=== PATIENT | male | born 1970 | race American Indian/Alaskan Native ===

== ENCOUNTER 2017-10-17 16:09 | Emergency (ER) | payer MEDICAID ==
[2017-10-17 16:56] VITALS: BP 132/78
[2017-10-17 17:34] LABS: ANION GAP 12.3; CHLORIDE,CL 101 mmol/L (101-111); SODIUM,NA 132 mmol/L (135-145)
[2017-10-17] MEDS ORDERED: ClonazePAM 0.5 MG Tab PO ONE (17:43)
--- NOTE | 2017-10-17 18:02 | EDM.PDOC ---
Scribed by Scarlet French 10/17/17 [id number] for Chad Rdogers MD ED HPI GENERAL MEDICAL PROBLEM - General Chief Complaint: General Stated Complaint: [id number] CHEST PAINS SOB LOWER BACK PAIN Time Seen by Provider: 10/17/17 16:47 Source of Information: Reports: Patient, RN, RN Notes Reviewed History Limitations: Reports: No Limitations - History of Present Illness INITIAL COMMENTS - FREE TEXT/NARRATIVE: Patient has been tapered from Xanax by his doctor and has complaint of sharp chest pains that feel like he is being poked with a finger, random muscle twinges especially in the legs, dry mouth and severe anxiety. He took his last dose of Xanax on October 15, and has been taking Hydroxyzine 50mg t.i.d. since that time. 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 Onset: Gradual Duration: Getting Worse Location: Reports: Generalized Severity: Severe Improves with: Reports: None Worsens with: Reports: None Associated Symptoms: Reports: No Other Symptoms Chest Pain Score (Numeric/FACES): 5 - Related Data Allergies Allergy/AdvReac Type Severity Reaction Status Date / Time acetaminophen [From Tylenol] Allergy Hives Verified 08/05/15 23:10 Penicillins Allergy Rash Verified 08/05/15 23:10 Home Meds: Home Meds oxyCODONE 10 mg PO BID 07/31/14 [History] [place]-3 Acid Ethyl Esters 2 cap PO BID 08/05/15 [History] Lisinopril 20 mg PO DAILY #30 tablet 08/07/15 [Rx] Ondansetron HCl [Zofran] 4 mg PO Q8H #60 tablet 08/07/15 [Rx] Aspirin [Low Dose Aspirin EC] 81 mg PO DAILY 10/17/17 [History] DULoxetine HCl [Duloxetine HCl] 30 mg PO DAILY 10/17/17 [History] Fenofibrate 160 mg PO DAILY 10/17/17 [History] Mirtazapine 7.5 mg PO BEDTIME 10/17/17 [History] hydrOXYzine HCl [hydrOXYzine] 50 mg PO TID 10/17/17 [History] metFORMIN [Glucophage] 500 mg PO BID 10/17/17 [History] Past Medical History HEENT History: Reports: Other (See Below) Other HEENT History: Diabetic retinopathy Cardiovascular History: Reports: High Cholesterol, Hypertension Respiratory History: Reports: Sleep Apnea Genitourinary History: Reports: Renal Calculus Musculoskeletal History: Reports: Back Pain, Chronic, Other (See Below) Other Musculoskeletal History: Lower lumbar disc disease L1-L5 Psychiatric History: Reports: Anxiety, Depression Endocrine/Metabolic History: Reports: Diabetes, Type II - Infectious Disease History Infectious Disease History: Reports: Chicken Pox - Past Surgical History GI Surgical History: Reports: Appendectomy, Cholecystectomy, Hernia, Abdominal Social & Family History - Tobacco Use Smoking Status *Q: Light Tobacco Smoker Years of Tobacco use: 5 Packs/Tins Daily: 0.1 Month/Year Tobacco Last Used: may 2014 Second Hand Smoke Exposure: Yes - Alcohol Use Days Per Week of Alcohol Use: 0 - Recreational Drug Use Recreational Drug Use: No ED ROS GENERAL - Review of Systems Review Of Systems: ROS reveals no pertinent complaints other than HPI. ED EXAM, GENERAL - Physical Exam Exam: See Below Exam Limited By: No Limitations General Appearance: Alert, WD/WN, No Apparent Distress, Anxious, Obese Eye Exam: Bilateral Eye: EOMI, Normal Inspection, PERRL Nose: Normal Inspection, Normal Mucosa, No Blood Throat/Mouth: Normal Inspection, Normal Lips, Normal Teeth, Normal Gums, Normal Oropharynx, Normal Voice, No Airway Compromise Head: Atraumatic, Normocephalic Neck: Normal Inspection, Supple, Non-Tender, Full Range of Motion Respiratory/Chest: No Respiratory Distress, Lungs Clear, Normal Breath Sounds, No Accessory Muscle Use, Chest Non-Tender Cardiovascular: Normal Peripheral Pulses, Regular Rate, Rhythm, No Edema, No Gallop, No JVD, No Murmur, No Rub GI/Abdominal: Other (benign obese abdomen) Back Exam: Normal Inspection Extremities: Normal Inspection Neurological: Alert, Oriented, CN II-XII Intact, Normal Cognition, Normal Gait, No Motor/Sensory Deficits Psychiatric: Anxious Skin Exam: Warm, Dry, Intact, Normal Color, No Rash Course - Vital Signs Last Recorded V/S: Last Vital Signs Temp 36.7 C 10/17/17 16:46 Pulse 66 10/17/17 16:46 Resp 20 10/17/17 16:46 BP 132/78 10/17/17 16:46 Pulse Ox 98 10/17/17 16:46 - Orders/Labs/Meds Orders: Active Orders 24 hr Category Date Time Status EKG 12 Lead [EKG Documentation Completion] [RC] STAT Care 10/17/17 16:25 Active Labs: Laboratory Tests 10/17/17 10/17/17 Range/Units 17:07 17:07 WBC 9.0 (5.0-10.0) 10^3/uL RBC 5.49 (4.6-6.2) 10^6/uL Hgb 16.7 D (14.0-18.0) g/dL Hct 46.8 (40.0-54.0) % MCV 85.2 D (80-100) fL MCH 30.4 (27.0-34.0) pg MCHC 35.7 H (33.0-35.0) g/dL Plt Count 325 (150-450) 10^3/uL Neut % (Auto) 51.9 (42.2-75.2) % Lymph % (Auto) 41.3 (20.5-50.1) % [place] % (Auto) 6.2 (2-8) % Eos % (Auto) 0.0 L (1.0-3.0) % Baso % (Auto) 0.6 (0.0-1.0) % Sodium 132 L (135-145) mmol/L Potassium 4.3 (3.6-5.0) mmol/L Chloride 101 (101-111) mmol/L Carbon Dioxide 23.0 (21.0-31.0) mmol/L Anion Gap 12.3 BUN 14 (7-18) mg/dL Creatinine 1.2 (0.6-1.3) mg/dL Est Cr Clr Drug Dosing 71.15 mL/min Estimated GFR (MDRD) > 60 BUN/Creatinine Ratio 11.66 Glucose 107 H (74-105) mg/dL Calcium 10.0 (8.4-10.2) mg/dl Magnesium 1.7 L (1.8-2.5) mg/dL Total Bilirubin 1.2 H (0.2-1.0) mg/dL AST 67 H (10-42) IU/L ALT 171 H (10-60) IU/L Alkaline Phosphatase 37 L (42-121) IU/L Troponin I < 0.02 (0.00-0.02) ng/ml Total Protein 8.6 H (6.7-8.2) g/dl Albumin 4.8 (3.2-5.5) g/dl Globulin 3.8 Albumin/Globulin Ratio 1.26 Meds: Medications Discontinued Medications Generic Name Dose Route Start Last Admin Trade Name Freq PRN Reason Stop Dose Admin Clonazepam 0.5 mg 10/17/17 17:43 10/17/17 17:52 Klonopin PO 10/17/17 17:44 0.5 mg ONETIME ONE Administration Departure - Departure Time of Disposition: 17:44 Disposition: Home, Self-Care 01 Condition: Good Clinical Impression: 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 - My Orders Last 24 Hours: My Active Orders 10/17/17 16:25 EKG 12 Lead [EKG Documentation Completion] [RC] STAT - Assessment/Plan Last 24 Hours: My Active Orders 10/17/17 16:25 EKG 12 Lead [EKG Documentation Completion] [RC] STAT I have read and agree with the documentation that has been completed regarding this visit. By signing this record, I attest that the documentation was completed in my physical presence and is an accurate record of the encounter.
--- NOTE | 2017-10-19 13:15 | EKG ---
10/17/2017 - TALON JESSICA - After my reading, EKG shows normal sinus rhythm at 67. [facility] /[id number]
== END 2017-10-17 17:55 | disposition home or self-care (01) ==
LOC: DL.ED 16:09
DX: F19.939 Other psychoactive substance use, unspecified with withdrawal, unspecified (principal); E78.00 Pure hypercholesterolemia, unspecified; I10 Essential (primary) hypertension; E11.319 Type 2 diabetes mellitus with unspecified diabetic retinopathy without macular edema; F17.210 Nicotine dependence, cigarettes, uncomplicated; Z88.6 Allergy status to analgesic agent; Z88.0 Allergy status to penicillin; Z79.899 Other long term (current) drug therapy; Z79.84 Long term (current) use of oral hypoglycemic drugs; Z79.82 Long term (current) use of aspirin
CPT/HCPCS: 36415; 80053; 83735; 84484; 85025; 93005; 99285; A9270

== ENCOUNTER 2019-09-25 06:48 | Day surgery (SDC) | payer OTHER ==
[~2019-09-25 06:48] MED LIST: Midazolam 1 MG/ML 2 ML SDV ONE; fentaNYL 100 MCG/2 ML SDV ONE
[2019-09-25] MEDS ORDERED: fentaNYL 100 MCG/2 ML SDV IV ONE (06:49)
[2019-09-25] MEDS ORDERED: Midazolam 1 MG/ML 2 ML SDV IV ONE (06:49)
[2019-09-25] MEDS: Dextrose 5%-0.45% NaCl 1,000 ML IV SCH (07:16)
[2019-09-25] MEDS: fentaNYL 100 MCG/2 ML SDV IV ONE ×2 (08:07→08:08)
[2019-09-25] MEDS: Midazolam 1 MG/ML 2 ML SDV IV ONE ×2 (08:09→08:10)
--- NOTE | 2019-09-25 10:41 | OR ---
DATE: 09/25/2019 PROCEDURES: Esophagogastroduodenoscopy and multiple pinch biopsies. INSTRUMENT USED: [id number] Olympus video panendoscope. PREMEDICATIONS: No oral or topical anesthesia used. Fentanyl 100 mcg intravenous, Versed 2 mg intravenous. The procedure was done under pulse oximetry, BP recording, and psychology technician. INDICATION: The patient with long-standing heartburn, unexplained and not responsive to medical measures. Has known chronic hepatitis C. Esophagogastroduodenoscopy is performed for detection of any active erosive lesions, Mann esophagus and/or malignancy also under consideration, detection of any evidence of esophageal varices, endoscopic hemostasis therapy if needed. PROCEDURE IN DETAIL: The scope was passed with ease. Adequate visualization of the esophagus was made from proximal to distal areas. No upper esophageal lesions identified. No distal esophageal stricture. No uphill or downhill esophageal varices. No Yahaira-Orellana tear. No evidence of erosive esophagitis by [place] criteria. No esophageal polyp or tumor mass identified. Z-line was seen at around 40 cm distal to the oral verge, configuration consistent with grade 1 by ZAP classification. No proximal gastric varices noted. Gastric fundus examination by retroflexion showed no polypoid lesions. No gastric ulcer, malignant mass, or vascular ectasia identified. Duodenal bulb showed no ulcer. Visualized second part of the duodenum was unremarkable. Multiple pinch biopsies were obtained from the gastric antrum and proximal body and sent for PyloriTek test for H pylori, and if negative in an hour, the tissue is to be sent for histopathology. No bleeding was noted from any of the visualized areas at the completion of examination. Photographs were taken of the duodenal bulb, gastric antrum, fundus, and distal esophagus. IMPRESSION: Normal study. The patient tolerated the procedure well. [facility] /[id number]
[2019-09-25 12:23] VITALS: BP 128/74; PULSE 77
--- NOTE | 2019-09-25 13:48 | LETTER ---
09/25/[address] [facility] [address] [place] [address] RE: PETER WILSON : 1970 Dear Ms. Guerra: Mr. Peter Reyes had esophagogastroduodenoscopy done this morning and he tolerated the procedure well. I herewith send a copy of the endoscopy note and photographs for your review. Thank you. Sincerely, [facility] /[id number]
== END 2019-09-25 10:20 | disposition home or self-care (01) ==
LOC: DL.ENDO 06:48
PROVIDERS: ATTEND Internal Medicine Gastroenterology
DX: A04.8 Other specified bacterial intestinal infections (principal); B18.2 Chronic viral hepatitis C; E66.09 Other obesity due to excess calories; M51.9 Unspecified thoracic, thoracolumbar and lumbosacral intervertebral disc disorder; I10 Essential (primary) hypertension; F17.210 Nicotine dependence, cigarettes, uncomplicated; E78.1 Pure hyperglyceridemia; F41.1 Generalized anxiety disorder; Z88.8 Allergy status to other drugs, medicaments and biological substances; Z88.0 Allergy status to penicillin; Z90.49 Acquired absence of other specified parts of digestive tract; Z68.36 Body mass index [BMI] 36.0-36.9, adult; Z86.59 Personal history of other mental and behavioral disorders; Z79.82 Long term (current) use of aspirin; Z79.899 Other long term (current) drug therapy
CPT/HCPCS: 43239; 87077; J2250; J3010; J7042

== ENCOUNTER 2020-05-20 05:12 | Day surgery (SDC) | payer BC, OTHER ==
[2020-05-20] MEDS ORDERED: fentaNYL 100 MCG/2 ML SDV IV ONE ×3 (05:13→06:34)
[2020-05-20] MEDS ORDERED: Midazolam 1 MG/ML 2 ML SDV IV ONE ×7 (05:13→06:39)
[2020-05-20] MEDS ORDERED: Dextrose 5%-0.45% NaCl 1,000 ML IV SCH (05:30)
[2020-05-20] MEDS ORDERED: Sodium Chloride 0.9% 10 ML Syringe FLUSH PRN (05:30)
[2020-05-20] MEDS ORDERED: Midazolam 1 MG/ML 2 ML SDV ONE (06:14)
[2020-05-20] MEDS ORDERED: fentaNYL 100 MCG/2 ML SDV ONE (06:14)
--- NOTE | 2020-05-20 07:17 | OR ---
DATE: 05/20/2020 PROCEDURE: Total colonoscopy. INSTRUMENT USED: [id number] Olympus video colonoscope. PREMEDICATIONS: Fentanyl 100 mcg intravenous, Versed 4 mg intravenous. The procedure was done under pulse oximetry, BP recording, and cardiac monitoring. INDICATION: Screening colonoscopic examination is done for detection of any polypoid lesions and removal, endoscopic hemostasis therapy if needed. DESCRIPTION OF PROCEDURE: Initial rectal exam was unremarkable. Rigid anoscopy showed small internal hemorrhoids without bleeding from them. The colonoscope was passed with ease up to the cecum, photographs were taken of the normal- appearing cecum identified by landmarks of appendiceal orifice and double-bulged ileocecal folds. Few scattered diverticula were noted in the colon both right and left sided. The bowel preparation was found to be adequate, Conway scale 3 in the transverse and left colon, 2 in right colon, total score 8. No stricture. No vascular ectasia. No large isolated ulcerations seen. No evidence of diffuse inflammatory bowel disease in the form of friability, contact bleeding, or ulcerations. No polyp or tumor mass identified. Probing the proximal sides of folds and flexures using adequate distention and clearing up the stool material, withdrawal of the scope was made, cecum to rectum, time over 6 minutes. No bleeding was noted from any of the visualized areas at the conclusion of the examination. IMPRESSION: 1. Internal hemorrhoids. 2. Diverticulosis. The patient tolerated the procedure well. [facility] /[id number]
[2020-05-20 08:39] VITALS: BP 103/65; PULSE 69
--- NOTE | 2020-05-22 11:33 | LETTER ---
05/21/2020 RE: PETER GROSS : 1970 Sun[address] SON[address] [facility] [address] [place] [address] Dear Mr. Weathersveronicakailash: Mr. Peter Gross had colonoscopic examination done and he tolerated the procedure well. I herewith send a copy of the endoscopy note and photographs for your review. Thank you. Sincerely, [facility] /[id number]
== END 2020-05-20 08:50 | disposition home or self-care (01) ==
LOC: DL.ENDO 05:12
PROVIDERS: ATTEND Internal Medicine Gastroenterology
DX: Z12.11 Encounter for screening for malignant neoplasm of colon (principal); K57.30 Diverticulosis of large intestine without perforation or abscess without bleeding; K64.8 Other hemorrhoids; E66.01 Morbid (severe) obesity due to excess calories; I10 Essential (primary) hypertension; F41.1 Generalized anxiety disorder; Z68.33 Body mass index [BMI] 33.0-33.9, adult
CPT/HCPCS: 45378; J2250; J3010; J7042

== ENCOUNTER 2022-02-02 05:00 | Emergency (ER) | payer BC, OTHER ==
[2022-02-02 05:09] VITALS: BP 153/102; PULSE 88
== END 2022-02-02 07:00 | disposition home or self-care (01) ==
LOC: DL.ED 05:00
DX: M48.061 Spinal stenosis, lumbar region without neurogenic claudication (principal); M51.16 Intervertebral disc disorders with radiculopathy, lumbar region; I10 Essential (primary) hypertension; E11.9 Type 2 diabetes mellitus without complications; F17.210 Nicotine dependence, cigarettes, uncomplicated; E66.9 Obesity, unspecified; Z68.35 Body mass index [BMI] 35.0-35.9, adult; Z88.6 Allergy status to analgesic agent; Z88.0 Allergy status to penicillin; Z88.8 Allergy status to other drugs, medicaments and biological substances; Z79.899 Other long term (current) drug therapy; Z79.82 Long term (current) use of aspirin; Z90.49 Acquired absence of other specified parts of digestive tract
CPT/HCPCS: 72131; 99284

== ENCOUNTER 2023-07-04 15:33 | Emergency (ER) | payer BC, OTHER ==
[2023-07-04 16:18] VITALS: BP 118/83; PULSE 79
[2023-07-04] MEDS ORDERED: Sodium Chloride 0.9% 1,000 ML IV ONE (18:13)
[2023-07-04] MEDS ORDERED: Sodium Chloride 0.9% 10 ML Syringe FLUSH PRN (18:13)
[2023-07-04] MEDS ORDERED: Ondansetron 4 MG/2 ML SDV IV ONE (18:13)
[2023-07-04] MEDS ORDERED: Bisacodyl 5 MG Tab PO ONE (18:13)
[2023-07-04] MEDS ORDERED: Lactulose Soln 10 GM/15 ML 30 ML UD Cup PO ONE (18:14)
[2023-07-04 18:32] LABS: BASOPHILS PERCENT AUTO 0.2 % (0.0-1.0); EOSINOPHILS PERCENT AUTO 0.1 % (1.0-3.0); HEMOGLOBIN 13.9 g/dL (14.0-18.0); LYMPHOCYTES PERCENT AUTO 21.6 % (20.5-50.1); MEAN CORPUSCULAR HEMOGLOBIN 28.6 pg (27.0-34.0); MEAN CORPUSCULAR HGB CONC 33.9 g/dL (33.0-35.0); MEAN CORPUSCULAR VOLUME 84.4 fL (80-100); NEUTROPHILS PERCENT AUTO 75.1 % (42.2-75.2); PLATELET COUNT,PLT 351 10^3/uL (150-450); RED BLOOD CELL COUNT 4.86 10^6/uL (4.6-6.2); WHITE BLOOD CELL COUNT,WBC 10.4 10^3/uL (5.0-10.0)
[2023-07-04 18:53] LABS: ALBUMIN 3.8 g/dL (3.4-5.0); ANION GAP 13.7 mEq/L (7-13); BILIRUBIN TOTAL 0.3 mg/dL (0.2-1.0); BUN/CREATININE RATIO 7.5 (No establ ref range); CALCIUM 9.4 mg/dL (8.5-10.1); CREATININE 1.06 mg/dL (0.70-1.30); EST CRCL DRUG DOSING (CG) 75.35 mL/min; POTASSIUM,K 4.7 mmol/L (3.5-5.1); PROTEIN TOTAL,TP 7.7 g/dL (6.4-8.2)
[2023-07-04 18:56] LABS: LACTIC ACID 0.8 mmol/L (0.4-2.0)
== END 2023-07-04 21:55 | disposition home or self-care (01) ==
LOC: DL.ED 15:33
DX: K59.00 Constipation, unspecified (principal); I10 Essential (primary) hypertension; K21.9 Gastro-esophageal reflux disease without esophagitis; E11.9 Type 2 diabetes mellitus without complications; E66.9 Obesity, unspecified; F17.210 Nicotine dependence, cigarettes, uncomplicated; Z88.0 Allergy status to penicillin; Z88.8 Allergy status to other drugs, medicaments and biological substances; Z68.29 Body mass index [BMI] 29.0-29.9, adult
CPT/HCPCS: 36415; 74019; 80053; 83605; 83690; 85025; 96361; 96374; 99283; A9270; J2405; J7030; J3490

== ENCOUNTER 2025-01-05 12:40 | Emergency (ER) | payer BC, OTHER ==
[2025-01-05 12:47] VITALS: BP 128/79; PULSE 103
[2025-01-05] MEDS ORDERED: Sodium Chloride 0.9% 10 ML Syringe FLUSH PRN (13:08)
[2025-01-05 13:23] LABS: BASOPHILS PERCENT AUTO 0.7 % (0.0-1.0); EOSINOPHILS PERCENT AUTO 0.3 % (1.0-3.0); HEMATOCRIT 39.3 % (40.0-54.0); HEMOGLOBIN 13.4 g/dL (14.0-18.0); LYMPHOCYTES PERCENT AUTO 34.6 % (20.5-50.1); MEAN CORPUSCULAR HEMOGLOBIN 29.5 pg (27.0-34.0); MEAN CORPUSCULAR HGB CONC 34.1 g/dL (33.0-35.0); MEAN CORPUSCULAR VOLUME 86.6 fL (80-100); MONOCYTES PERCENT AUTO 4.5 % (2-8); NEUTROPHILS PERCENT AUTO 59.9 % (42.2-75.2); PLATELET COUNT,PLT 208 10^3/uL (150-450); RED BLOOD CELL COUNT 4.54 10^6/uL (4.6-6.2)
[2025-01-05 13:46] LABS: B-TYPE NATRIURETIC PEPTIDE,BNP 10 pg/ml (0-100)
[2025-01-05 13:48] LABS: A/G RATIO 1.3; ALANINE AMINOTRANSFERASE,ALT 36 U/L (16-63); ALKALINE PHOSPHATASE 50 U/L (46-116); ANION GAP 16.1 mEq/L (7-13); ASPARTATE AMNIOTRANSFERASE,AST 19 U/L (15-37); BILIRUBIN TOTAL 0.4 mg/dL (0.2-1.0); BLOOD UREA NITROGEN,BUN 14 mg/dL (7-18); BUN/CREATININE RATIO 8.8 (No establ ref range); CARBON DIOXIDE,CO2 25 mmol/L (21-32); CHLORIDE,CL 104 mmol/L (98-107); EST CRCL DRUG DOSING (CG) 49.35 mL/min; GLUCOSE RANDOM 145 mg/dL (70-99); POTASSIUM,K 4.1 mmol/L (3.5-5.1); SODIUM,NA 141 mmol/L (136-145); URIC ACID 6.8 mg/dL (3.5-7.2)
[2025-01-05 13:50] LABS: INR 0.9 (0.9-1.2); PROTHROMBIN TIME 9.6 SEC (9.0-12.0); PTT,PARTIAL THROMBOPLSTIN TIME 24.7 SEC (22.0-34.0)
[2025-01-05 14:01] LABS: C-REACTIVE PROTEIN < 0.50 ng/dL (<=0.50); ESTIMATED GFR 51 mL/min (>=60)
== END 2025-01-05 14:41 | disposition home or self-care (01) ==
LOC: DL.ED 12:40
DX: G62.9 Polyneuropathy, unspecified (principal); R07.9 Chest pain, unspecified; R06.02 Shortness of breath; I10 Essential (primary) hypertension; E78.00 Pure hypercholesterolemia, unspecified; E11.9 Type 2 diabetes mellitus without complications; E66.9 Obesity, unspecified; K21.9 Gastro-esophageal reflux disease without esophagitis; Z79.899 Other long term (current) drug therapy; Z88.8 Allergy status to other drugs, medicaments and biological substances; Z88.1 Allergy status to other antibiotic agents; Z88.0 Allergy status to penicillin; Z88.6 Allergy status to analgesic agent
CPT/HCPCS: 36415; 71045; 80053; 83880; 84484; 84550; 85025; 85379; 85610; 85730; 86140; 93005; 99285

== ENCOUNTER 2025-04-18 23:45 | Emergency (ER) | payer BC, OTHER ==
[2025-04-19 00:30] LABS: BASOPHILS PERCENT AUTO 0.5 % (0.0-1.0); EOSINOPHILS PERCENT AUTO 0.1 % (1.0-3.0); LYMPHOCYTES PERCENT AUTO 20.2 % (20.5-50.1); MONOCYTES PERCENT AUTO 4.5 % (2-8); NEUTROPHILS PERCENT AUTO 74.7 % (42.2-75.2); PLATELET COUNT,PLT 236 10^3/uL (150-450); RED BLOOD CELL COUNT 6.16 10^6/uL (4.6-6.2); WHITE BLOOD CELL COUNT,WBC 15.5 10^3/uL (5.0-10.0)
[2025-04-19] MEDS: Ondansetron 4 MG/2 ML SDV IVPUSH ONE (00:42)
[2025-04-19] MEDS: GI Cocktail Oral Solution 30 ML PO ONE (00:43)
[2025-04-19] MEDS: Lactated Ringers 1,000 ML IV ONE ×2 (00:43→03:08)
[2025-04-19 00:49] LABS: A/G RATIO 1.2; ALANINE AMINOTRANSFERASE,ALT 58 U/L (16-63); ASPARTATE AMNIOTRANSFERASE,AST 25 U/L (15-37); BILIRUBIN TOTAL 0.7 mg/dL (0.2-1.0); BLOOD UREA NITROGEN,BUN 14 mg/dL (7-18); CARBON DIOXIDE,CO2 26 mmol/L (21-32); CHLORIDE,CL 100 mmol/L (98-107); CREATININE 1.46 mg/dL (0.70-1.30); GLUCOSE RANDOM 142 mg/dL (70-99); POTASSIUM,K 4.0 mmol/L (3.5-5.1); PROTEIN TOTAL,TP 9.1 g/dL (6.4-8.2); SODIUM,NA 140 mmol/L (136-145)
[2025-04-19 00:50] LABS: ESTIMATED GFR 56 mL/min (>=60)
[2025-04-19 06:39] VITALS: BP 115/85; PULSE 89
== END 2025-04-19 03:33 | disposition home or self-care (01) ==
LOC: DL.ED 23:45
DX: K52.9 Noninfective gastroenteritis and colitis, unspecified (principal); E78.00 Pure hypercholesterolemia, unspecified; I10 Essential (primary) hypertension; K21.9 Gastro-esophageal reflux disease without esophagitis; E11.9 Type 2 diabetes mellitus without complications; Z88.1 Allergy status to other antibiotic agents; Z88.8 Allergy status to other drugs, medicaments and biological substances; Z88.0 Allergy status to penicillin; Z79.899 Other long term (current) drug therapy; Z90.49 Acquired absence of other specified parts of digestive tract
CPT/HCPCS: 36415; 74019; 80053; 83605; 83735; 85025; 96361; 96374; 96375; 99284; A9270; J2405; J2765; J7120; 99283

== ENCOUNTER 2025-04-20 14:02 | Emergency (ER) | payer BC, OTHER ==
[2025-04-20 14:24] VITALS: BP 150/87; PULSE 89
[2025-04-20] MEDS: Ondansetron 4 MG Tab.DIS PO ONE (14:32)
== END 2025-04-20 14:33 | disposition home or self-care (01) ==
LOC: DL.ED 14:02
DX: K52.9 Noninfective gastroenteritis and colitis, unspecified (principal); I10 Essential (primary) hypertension; E66.9 Obesity, unspecified; E11.9 Type 2 diabetes mellitus without complications; Z88.0 Allergy status to penicillin; Z88.8 Allergy status to other drugs, medicaments and biological substances; Z79.899 Other long term (current) drug therapy; Z90.49 Acquired absence of other specified parts of digestive tract
CPT/HCPCS: 99283; A9270